=== PATIENT | male | born 1955 | race Caucasian/White ===

== ENCOUNTER 2025-11-02 11:28 | Day surgery (SDC) | payer MEDICARE, BC, SELFPAY ==
[2025-11-02] MEDS: ETHYL CHLORIDE 1 APPLICATION 1 APPLIC TOPICAL (11:50)
[2025-11-02] MEDS: BUPIVACAINE 0.5% 30 ML INJECTION (11:50)
[2025-11-02 11:52] VITALS: BMI 24.5
[2025-11-02 12:55] VITALS: BP 117/64; PULSE 63; RESP 16; O2SAT 97
[2025-11-02 13:00] VITALS: BP 140/89; PULSE 68; RESP 16; O2SAT 98
[2025-11-02 13:05] VITALS: BP 128/80; PULSE 60; RESP 16; O2SAT 97
--- NOTE | 2025-11-02 13:05 | SUR.OPER ---
PATIENT QUESTIONS ANSWERED SATISFACTORILY PREOPERATIVELY.? PATIENT BROUGHT TO OR #4 PER WHEELCHAIR.? Patient positioned supine on OR #4 bed.? The perioperative?team supported arms bilaterally on arm boards. Final approval of positioning by surgeon.
[2025-11-02 13:10] VITALS: BP 141/78; PULSE 60; RESP 16; O2SAT 99
[2025-11-02 13:15] VITALS: BP 142/83; PULSE 63; RESP 16; O2SAT 99
--- NOTE | 2025-11-02 13:17 | P.ORPRC_ITS ---
Procedure Note Date of procedure: 11/02/25 Procedure: PREOPERATIVE DIAGNOSIS: 1. Right long and ring flexor tenosynovitis - trigger finger POSTOPERATIVE DIAGNOSIS: 1. Right long and ring flexor tenosynovitis - trigger finger PROCEDURE: 1. Right long and ring flexor tendon sheath open release (A1 huan) SURGEON: Speedy Schwartz MD. ADULT HEALTH CLINICAL NURSE SPECIALIST: IZA Nuñez ANESTHESIA: Local anesthetic 8 mL total via 50:50 mixture of 1% Lidocaine with epi and 0.5% marcaine plain and all that mixture divided in half (4 mL for each digit) EBL: 2mL IMPLANTS: None TOURNIQUET: None COMPLICATIONS: None evident INDICATIONS: The patient is a pleasant 70-year-old male who has experienced right long and ring catching/triggering for number of months. It has progressively gotten worse. Given the failure of nonoperative management, and how this affects daily life, surgery was recommended. DESCRIPTION OF PROCEDURE: Following a thorough discussion of risks, benefits, and alternatives consent was obtained and the operative digit(s) was marked. The patient was brought to the operating room and placed supine on the operating table. Local anesthesia induction was undertaken in preop holding. No antibiotics were administered as this was planned to be a local case only. Proper time-out was performed identifying proper patient, site, and procedure. The operative extremity was prepped and draped in the appropriate sterile fashion using ChloraPrep. An incision was made on the palmar surface of the hand overlying the MCP joint region of the appropriate digit(s) respecting the palmar creases being cautious not to cross these perpendicularly. Sharp incision through the skin, and blunt dissection through subcutaneous tissue allowing protection of crossing neurologic structures. The A1 huan was visualized directly. It was incised sharply with a 15 blade. It was released completely from its distal to proximal extent under direct visualization. The tendon was inspected and found to be mildly striated consistent with some friction. Otherwise, it was intact. The tendon was removed out of the wound, and further inspected. The patient was asked to manually flex and extend the digits and showed no further catching. The catching, which was visualized initially, was no longer evident with reproduction of a manual fist and relaxation. Closure was performed with 4-O nylon in interrupted fashion. Soft dressings were applied, and the patient was transferred to the recovery room in stable condition. PLAN: 1. Encourage elevation of the operative extremity. 2. Range of motion of the fingers and hand/wrist as tolerated. 3. Ibuprofen/acetaminophen and/or oxycodone as needed for pain control. 4. Follow up with PA visit in 12-16 days for wound check and suture removal.
[2025-11-02] MEDS: BACITRACIN OINTMENT BULK TUBE 1 APPLIC TOPICAL (13:19)
[2025-11-02 13:31] VITALS: BP 107/69; PULSE 70; RESP 16; TEMP 36.7; O2SAT 98
== END 2025-11-02 13:31 | disposition home or self-care (01) ==
PROVIDERS: PCP Family Medicine; Visit Provider Orthopaedic Surgery Sports Medicine
PROC: (CPT 26055; principal; 2025-11-02 13:15)
DX: M65.341 Trigger finger, right ring finger (principal); M65.331 Trigger finger, right middle finger; M65.841 Other synovitis and tenosynovitis, right hand
CPT/HCPCS: 26055 ×2; J0665